=== PATIENT | female | born 1945 | race Caucasian/White ===

== ENCOUNTER 2025-03-21 15:52 | Emergency (ER) | payer OTHER ==
[~2025-03-21] VITALS: Ht 175.3 cm; Wt 108.9 kg
[2025-03-21] MEDS: ACETAMINOPHEN 325 MG TABLET PO ONE (16:30)
[2025-03-21 16:36] LABS: BASOPHILS # (AUTO) 0.1 K/uL (0.0-0.2); BASOPHILS % (AUTO) 0.9 % (0.0-2.0); EOSINOPHILS # (AUTO) 0.2 K/uL (0.0-0.7); EOSINOPHILS % (AUTO) 1.6 % (0.0-6.0); HEMATOCRIT 43 % (33-45); HEMOGLOBIN 14.1 g/dL (11.5-14.8); LYMPHOCYTES # (AUTO) 1.1 K/uL (0.8-4.8); LYMPHOCYTES % (AUTO) 10.4 % (20.0-44.0); MEAN CORPUSCULAR HEMOGLOBIN 27 PG (26.0-33.0); MEAN CORPUSCULAR HGB CONC 33 g/dl (31.0-36.0); MEAN CORPUSCULAR VOLUME 82 fL (82-100); MONOCYTES # (AUTO) 0.9 K/uL (0.1-1.30); MONOCYTES % (AUTO) 8.9 % (2.0-12.0); NEUTROPHILS # (AUTO) 8.1 K/uL (1.8-8.9); NEUTROPHILS % (AUTO) 78.2 % (43.0-81.0); PLATELET COUNT (AUTO) 315 K/uL (150-450); RED BLOOD CELL COUNT(AUTO) 5.27 MIL/uL (4.0-5.2); RED CELL DISTRIBUTION WIDTH 16.9 % (11.5-15.0); WHITE BLOOD COUNT (AUTO) 10.3 K/uL (4.3-11.0)
[2025-03-21 16:41] LABS: CALCIUM, SERUM 9.2 mg/dL (8.5-10.1); CREATININE 0.6 mg/dL (0.6-1.3); POTASSIUM 4.1 mmol/L (3.5-5.1)
[2025-03-21 16:47] LABS: ALBUMIN 2.7 g/dL (3.4-5.0); BILIRUBIN,DIRECT 0.2 mg/dL (0.0-0.2); BILIRUBIN,TOTAL 0.6 mg/dL (0.2-1.0); INR 1.13 (0.91-1.10); PROTHROMBIN TIME 11.9 SECS (9.2-11.1); TOTAL PROTEIN, SERUM 6.7 g/dL (6.4-8.2)
[2025-03-21] MEDS ORDERED: ACETAMINOPHEN 325 MG TABLET ONE (16:51)
[2025-03-21] MEDS: IV NS 0.9% 500 ML BAG IV ONE ×2 (19:43→21:06)
[2025-03-21] MEDS ORDERED: DILTIAZEM HCL 25 MG IV ONE (21:00)
[2025-03-21] MEDS: DILTIAZEM HCL 25 MG IV IV ONE (21:06)
[2025-03-21] MEDS ORDERED: CLONIDINE HCL 0.1 MG TABLET ONE (23:46)
[2025-03-21] MEDS: CLONIDINE HCL 0.1 MG TABLET PO ONE (23:53)
[2025-03-22 00:47] VITALS: BP 160/90; TEMP 98; O2SAT 99
== END 2025-03-22 00:49 ==
LOC: ER 15:55
DX: M79.604 Pain in right leg (principal); R22.41 Localized swelling, mass and lump, right lower limb; E78.5 Hyperlipidemia, unspecified; F03.90 Unspecified dementia, unspecified severity, without behavioral disturbance, psychotic disturbance, mood disturbance, and anxiety; F32.A Depression, unspecified; F41.9 Anxiety disorder, unspecified; I11.0 Hypertensive heart disease with heart failure; I50.9 Heart failure, unspecified; I25.10 Atherosclerotic heart disease of native coronary artery without angina pectoris; I48.91 Unspecified atrial fibrillation; Z88.0 Allergy status to penicillin; Z88.8 Allergy status to other drugs, medicaments and biological substances
CPT/HCPCS: 99285; 96374; 71045; 93005; 72170; 73590; 85025; 80048; 80076; 36415; 84443; 84484; 85730; J3490